=== PATIENT | female | born 1970 | race Caucasian/White ===

== ENCOUNTER 2020-06-11 21:45 | Emergency (ER) | payer BC ==
[~2020-06-11] VITALS: Ht 167.6 cm; Wt 68.0 kg
[2020-06-11 21:51] VITALS: BP 122/85
--- NOTE | 2020-06-11 21:53 | NUR ---
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
--- NOTE | 2020-06-11 22:15 | NUR ---
URINE COLLECTED AND SENT TO LAB
[2020-06-11 22:21] LABS: APPEARANCE,URINE SL CLOUDY (CLEAR); BILIRUBIN,URINE NEGATIVE (NEGATIVE); BLOOD, URINE TRACE-INTA Ery/uL (NEGATIVE); COLOR,URINE ORANGE (YELLOW); KETONES,URINE NEGATIVE (NEGATIVE); LEUKOCYTE ESTERASE ,URINE NEGATIVE (NEGATIVE); NITRITE, URINE POSITIVE (NEGATIVE); PROTEIN,URINE TRACE mg/dl (NEGATIVE); UGLUCOSE 100 MG/DL mg/dL (NEGATIVE)
[2020-06-11] MEDS ORDERED: HYDROCODONE/APAP 5/325MG TABLET PO ONE (22:30)
[2020-06-11] MEDS ORDERED: HYDROCODONE/APAP 5/325MG TABLET ONE (22:31)
[2020-06-11 22:37] LABS: BACTERIA,URINE Few /HPF (None Seen); SQUAMOUS EPITHELIAL CELL,UR Few /HPF (None Seen); WBC,URINE 0-2 /HPF (0-3)
--- NOTE | 2020-06-11 22:55 | NUR ---
Patient discharged to home in stable condition. Written and verbal after care instructions given. Patient verbalizes understanding of instruction.
--- NOTE | 2020-06-11 22:56 | NUR ---
PLACED A LEG BAG FOR A PATIENT.
== END 2020-06-11 23:04 | disposition home or self-care (01) ==
LOC: ER 21:47
DX: N39.0 Urinary tract infection, site not specified (principal); R33.9 Retention of urine, unspecified; Z85.850 Personal history of malignant neoplasm of thyroid; Z98.84 Bariatric surgery status; Z90.710 Acquired absence of both cervix and uterus
CPT/HCPCS: 81000-TC; 87086-TC